=== PATIENT | male | born 1950 | race Caucasian/White ===

== ENCOUNTER → 2019-11-10 12:52 | Outpatient (BNVA) | payer OTHER, SELFPAY | PROVIDERS: PCP Internal Medicine; Visit Provider Specialist | DX: R55 Syncope and collapse (principal); R56.9 Unspecified convulsions | CPT/HCPCS: 95816 ==

== ENCOUNTER 2022-10-17 12:18 | Outpatient (CLI) | payer OTHER, SELFPAY ==
--- NOTE | 2022-10-17 12:28 | USCV_ITS ---
Min Alfredo Age: 72 Gender: M : 1950 Exam Date: 10/17/2022 12:44 Ordering Phys: Jesus Alberto Garzon DO Technologist: Lalo Ochoa Exam Location: [facility] – [place] Indication: carotid stenosis Risk Factors: Previous Vascular Surgery: Right Brachial BP: / Left Brachial BP: / Right Left Velocity (cm/s) Spectral Plaque Velocity (cm/s) Spectral Plaque Syst/Diast Broadening Syst/Diast Broadening 80.50/ 22.10 Prox CCA 85.80 / 26.00 105.80/29.80 Mid CCA 76.10 / 23.60 94.80/ 28.70 Distal CCA 94.30 / 30.20 57.10/ 20.90 Prox ICA 102.60/ 27.10 54.90/ 19.20 Mid ICA 80.70 / 26.40 49.40/ 18.70 Distal ICA 60.20 / 24.20 73.80 ECA 70.10 0.52 ICA/CCA 1.06 Retrograde Vertebral Antegrade 30.60/ 7.20 cm/s 42.20/ 16.50 cm/s Tri Subclavian Tri 73.80 87.00 FINDINGS Comparison: none available. No significant elevation of systolic or diastolic velocities. Waveforms are normal. Minimal carotid atherosclerosis. Antegrade vertebral arteries. CONCLUSIONS Bilateral ICA stenosis less than 50%. Dr. Monica Vasquez DO (Electronically Signed) Final Date: 17 October 2022 14:19 S
== END 2022-10-17 12:19 | disposition home or self-care (01) ==
LOC: RAD 12:22
PROVIDERS: PCP Internal Medicine; Visit Provider Emergency Medicine Emergency Medical Services
DX: I65.23 Occlusion and stenosis of bilateral carotid arteries (principal)
CPT/HCPCS: 93880